=== PATIENT | female | born 1975 | race Caucasian/White ===

== ENCOUNTER 2017-06-21 13:06 | Outpatient (CLI) | payer OTHER ==
--- NOTE | 2017-06-21 17:39 | XRAY Report ---
COMPLETE CERVICAL SPINE: 06/21/2017 CLINICAL INDICATION: Pain. FINDINGS: AP, lateral, oblique, odontoid views of the cervical spine demonstrate reversal of the normal cervical lordosis. Minimal degenerative disk disease is present at C5-6. There is no evidence of fracture. The prevertebral soft tissues are unremarkable. IMPRESSION: REVERSAL OF THE NORMAL CERVICAL LORDOSIS. MINIMAL DEGENERATIVE DISK DISEASE. TD: 06/21/2017 17:39
== END 2017-06-21 13:07 | disposition home or self-care (01) ==
LOC: DI 13:06
PROVIDERS: ATTEND Registered Nurse
DX: M50.322 Other cervical disc degeneration at C5-C6 level (principal)
CPT/HCPCS: 72050

== ENCOUNTER 2017-08-19 07:41 | Outpatient (CLI) | END 2017-08-19 07:42 | disposition home or self-care (01) | CPT/HCPCS: 72156; A9585 ==

== ENCOUNTER 2017-12-05 15:33 | Outpatient (CLI) | payer OTHER ==
--- NOTE | 2017-12-06 14:06 | MRI Report ---
Reason: LUMBAGO WITH SCIATICA,LEFT SIDE,OTHER CHRONIC PAIN Procedure Date: 12/05/2017 Accession Number: [id number] / [id number] Procedure: MRI - Lumbar Spine W/O CPT Code: FULL RESULT: MRI LUMBAR SPINE WITHOUT CONTRAST INDICATION: 42-year-old female. Lumbago with left-sided sciatica. TECHNIQUE: 1. Sagittal STIR, T1 and T2. 2. Axial T1 and T2. COMPARISON: None. FINDINGS: Lumbar spine radiographs are not available for review. Interpretation assumes the presence of 5, [id number], lumbar-type vertebrae. The last fully formed disk has been labeled L5-S1. The L5 vertebra is somewhat transitional. There appears to be partial sacralization on the left. There is a minor, levoconvex lumbar curvature with apex at L2. In the sagittal plane there is a grade 1 anterolisthesis of L3 on L4 measuring 5 mm. No L3 pars interarticularis defect is identified. The anterior subluxation appears to be secondary to degenerative facet arthrosis. There is minor retrolisthesis of L4 on L5 (roughly 2 mm). Alignment is otherwise unremarkable. There is absence of normal T2 signal from the L3-L4 and L4-L5 disks, demonstrating definite degenerative change. There is slight loss of normal T2 signal from the L1-L2 disk suggesting at least early degenerative change. The L2-L3 and L5-S1 disks appear well-hydrated. There is mild to moderate disk space narrowing at L3-L4 and L4-L5. The lumbar disk space heights are otherwise preserved. Type II reactive marrow changes are identified in the vertebral endplates at L3-L4 anteriorly. An intraosseous hemangioma is identified in the inferior T11 vertebral body. The marrow signal intensity is otherwise normal for age. Imaged only in the sagittal plane is a small, posterior disk herniation at T10-T11. It causes mild mass effect on the thecal sac. There is no spinal stenosis. Axial images: T11-T12: Shallow posterior protrusion with minimal mass effect on the thecal sac. No spinal stenosis. The neural foramina appear widely patent. L2-L3: No focal disk herniation. No spinal stenosis or significant foraminal narrowing. L3-L4: Anterolisthesis with associated uncovering of the disk. No focal posterior protrusion or extrusion is demonstrated. There are small intraforaminal protrusions bilaterally. Degenerative facet arthrosis with mild to moderate bony hypertrophy. Moderate redundancy of the ligamenta flava and mild prominence of the intralaminar fat pad. Circumferential thecal sac compression with moderate generalized (central and subarticular zone) spinal stenosis. Mild to moderate foraminal stenoses. L4-L5: Retrolisthesis. Small, central extrusion with caudal migration of extruded disk material in the ventral epidural space, extending inferiorly for about 8 mm, centrally and paracentrally to the left along the posterior margin of the upper L5 vertebral body. Early degenerative facet arthrosis. No significant bony hypertrophy. Mild to moderate redundancy of the ligamenta flava. Mild prominence of the intralaminar fat pad. There is circumferential mass effect on the thecal sac without significant appearing central or subarticular zone spinal stenosis. Mild foraminal stenoses. L5-S1: No disk herniation. No spinal canal or foraminal stenosis. IMPRESSION: 1. Of note, lumbar spine radiographs are not available for review. For the purposes of this dictation, the presence of 5 [id number], lumbar-type vertebrae has been assumed and the last, fully formed disk has been labeled L5-S1. The L5 vertebra appears to be transitional with partial sacralization on the left. 2. Degenerative Disk and facet changes are seen in the mid and lower lumbar spine as documented above. 3. At L3-L4 there is moderate generalized (central and subarticular zone) spinal stenosis due to a combination of factors including a grade I degenerative anterolisthesis of L3 on L4. No neural impingement is identified. 4. At L4-L5 there is a central disk herniation with caudal migration of extruded or sequestered disk material in the ventral epidural space. The extrusion causes mass effect on the thecal sac without significant appearing spinal stenosis. No evidence of neural impingement. Comment: No definite etiology for left-sided sciatica has been identified.
== END 2017-12-05 15:34 | disposition home or self-care (01) ==
LOC: DI 15:33
PROVIDERS: ATTEND Family Medicine
DX: M51.16 Intervertebral disc disorders with radiculopathy, lumbar region (principal); M48.061 Spinal stenosis, lumbar region without neurogenic claudication; G89.29 Other chronic pain
CPT/HCPCS: 72148

== ENCOUNTER 2018-05-18 12:54 | Emergency (ER) | payer OTHER ==
[2018-05-18] MEDS ORDERED: DEXAMETHASONE 10 MG/ML VIAL PO STA (13:43)
[2018-05-18] MEDS ORDERED: KETOROLAC 60 MG/2 ML VIAL IM STA (13:44)
[2018-05-18] MEDS ORDERED: MINERAL OIL ENEMA 133 ML BOTTLE RC STA (13:44)
[2018-05-18 14:12] LABS: BILIRUBIN,URINE NEGATIVE (NEGATIVE); GLUCOSE, URINE (UA) NEGATIVE (NEGATIVE); KETONES,URINE (UA) NEGATIVE (NEGATIVE); LEUKOCYTE ESTERASE, URINE NEGATIVE (NEGATIVE); NITRITE,URINE NEGATIVE (NEGATIVE); OCCULT BLOOD,URINE NEGATIVE (NEGATIVE); PH,URINE 5.5 PH (5.0-7.5); PROTEIN,URINE NEGATIVE (NEGATIVE); UROBILINOGEN,URINE 0.2 (NORMAL) E.U./dL (NORMAL)
[2018-05-18 14:13] LABS: CLARITY,URINE CLEAR (CLEAR)
--- NOTE | 2018-05-18 15:48 | ED Physician Documentation ---
PD HPI BACK PAIN - Stated complaint Stated Complaint: LOW BACK PX RADIATES DOWN LEG-CONSTIPATED - Chief complaint Chief Complaint: Back Pain - History obtained from History obtained from: Patient - History of Present Illness Timing - onset: How many weeks ago (2) Timing - details: Waxing and waning Location: Lower, Right Quality: Similar to prior episodes Associated symptoms: No: Fever, Weakness, Numbness, Incontinent of urine Worsened by: Movement Similar symptoms before: Diagnosis (Lumbar disc herniation diagnosed by MRI one year ago.) - Additional information Additional information: The patient is a 42-year-old female who presents with lower back pain radiating down her right thigh. The pain this time started about 2 weeks ago, and has been waxing and waning since that time. She was seen by her primary physician one week ago and was prescribed prednisone 40 mg daily. She presents now because of persistent symptoms. She also complains of constipation, stating she has not had a bowel movement in the past 5 days. She reports frequency of urination, but denies urinary incontinence. She denies fever, numbness or weakness. The last time she had an episode of back pain this bad was about one year ago. She underwent MRI of her lumbar spine at that time and states that it revealed a herniated disc. Review of Systems Constitutional: denies: Fever Nose: denies: Congestion Throat: denies: Sore throat Cardiac: denies: Chest pain / pressure Respiratory: denies: Dyspnea, Cough GI: reports: Constipation. denies: Abdominal Pain, Nausea, Vomiting : reports: Dysuria, Hesitancy Skin: denies: Rash Musculoskeletal: reports: Back pain. denies: Extremity swelling Neurologic: denies: Focal weakness, Numbness, Headache PD PAST MEDICAL HISTORY - Past Medical History Musculoskeletal: Chronic back pain - Past Surgical History Past Surgical History: Yes HEENT: Tonsil/Adenoidectomy - Present Medications Home Medications: Ambulatory Orders Medication Instructions Recorded Confirmed Cyclobenzaprine [Flexeril] 10 mg PO TID PRN #20 tablet 05/18/18 Erenumab-Aooe [Aimovig 70 mg SQ ONCE 05/18/18 05/18/18 Autoinjector] Lidocaine Patch 5% [Lidoderm Patch] 1 patch TOP DAILY PRN #10 patch 05/18/18 Nortriptyline HCl [Pamelor] 60 mg PO DAILY 05/18/18 05/18/18 Ondansetron [Ondansetron Odt] 4 mg PO QID PRN 05/18/18 05/18/18 Rizatriptan Benzoate [Maxalt] 10 mg PO ONCE PRN 05/18/18 05/18/18 - Allergies Allergies/Adverse Reactions: Allergies Allergy/AdvReac Type Severity Reaction Status Date / Time buspirone AdvReac Rash Verified 05/18/18 13:26 - Social History Does the pt smoke?: No Smoking Status: Never smoker Does the pt drink ETOH?: No Does the pt have substance abuse?: Yes Substance Use and Type: Marijuana - Immunizations Immunizations are current?: Yes PD ED PE NORMAL - Vitals Vital signs reviewed: Yes (borderline hypertension initially) - General General: Alert and oriented X 3, Well developed/nourished, Other (Overweight) - HEENT HEENT: Atraumatic, Pharynx benign - Neck Neck: No bony TTP, No adenopathy - Cardiac Cardiac: RRR - Respiratory Respiratory: No respiratory distress, Clear bilaterally - Abdomen Abdomen: Soft, Non tender - Back Back: No CVA TTP, Other (Tenderness to palpation across the lower back, without tenderness to palpation along the spinous processes.) - Derm Derm: No rash - Extremities Extremities: No edema, No calf tenderness / cord, Other (Straight leg raise is positive on the right at 20 degrees elevation; negative on the left.) - Neuro Neuro: Alert and oriented X 3, No motor deficit, No sensory deficit, Other (Deep tendon reflexes are 2+ and equal bilaterally at the patellar and Achilles tendons.) Results - Vitals Vitals: Oxygen O2 Source Room air - Labs Labs: Laboratory Tests 05/18/18 14:08 Urine Color YELLOW Urine Clarity CLEAR Urine pH 5.5 Ur Specific [place] <=1.005 Urine Protein NEGATIVE Urine Glucose (UA) NEGATIVE Urine Ketones NEGATIVE Urine Occult Blood NEGATIVE Urine Nitrite NEGATIVE Urine Bilirubin NEGATIVE Urine Urobilinogen 0.2 (NORMAL) Ur Leukocyte Esterase NEGATIVE Ur Microscopic Review NOT INDICATED Urine Culture Comments NOT INDICATED PD MEDICAL DECISION MAKING - ED course Complexity details: reviewed old records, reviewed results, re-evaluated patient, considered differential, d/w patient, d/w family ED course: The patient's presentation is significant for acute exacerbation of recurrent low back pain. Her presentation does not suggest epidural abscess, cauda equina syndrome, or spinal stenosis. Urinalysis is negative. She has had no bowel movement for the past 5 days, and is concerned about constipation. Treatment in the emergency department included administration of dexamethasone 10 mg orally and ketorolac 60 mg IM. This markedly improved her back pain. A fleets mineral oil enema was administered, without significant results. She is being discharged with a bottle of milk of magnesia to use at home. 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 Departure - Departure Disposition: Home, Self Care Clinical Impression: Low back pain Qualifiers: Chronicity: unspecified Back pain laterality: bilateral Sciatica presence: with sciatica Sciatica laterality: sciatica of right side Qualified Code(s): M54.41 - Lumbago with sciatica, right side Constipation Qualifiers: Constipation type: unspecified constipation type Qualified Code(s): K59.00 - Constipation, unspecified Condition: Stable Instructions: ED Low Back Pain Injury, ED Constipation Follow-Up: Josie Abraham ARNP [Primary Care Provider] - Prescriptions: Cyclobenzaprine [Flexeril] 10 mg PO TID PRN #20 tablet PRN Reason: Spasms Lidocaine Patch 5% [Lidoderm Patch] 1 patch TOP DAILY PRN #10 patch PRN Reason: pain Comments: Apply ice pack to your lower back intermittently for the next few days. You can use ibuprofen, up to 800 mg 3 times daily. He can use Flexeril as prescribed as needed for muscle spasms. You can use lidocaine patch as prescribed as needed for pain. Drink milk of magnesia to help with constipation. Follow-up with your primary physician within 1 week. Call to schedule an appointment. Return to the emergency department if you develop increasing pain, persistent vomiting, or otherwise worsening symptoms. Discharge Date/Time: 05/18/18 16:10
[2018-05-18] MEDS ORDERED: MAGNESIUM CITRATE 296 ML BOTTLE PO STA (15:55)
[2018-05-18 16:06] VITALS: BP 139/100
== END 2018-05-18 16:10 | disposition home or self-care (01) ==
LOC: ED 12:54
DX: M54.41 Lumbago with sciatica, right side (principal); K59.00 Constipation, unspecified
CPT/HCPCS: 81003; 96372; 99283; A9270; 81001; 87086

== ENCOUNTER 2021-03-24 09:24 | Outpatient (CLI) | payer OTHER ==
--- NOTE | 2021-03-24 17:18 | XRAY Report ---
PROCEDURE: Knee 3 View BILAT INDICATIONS: BILATERAL KNEE PAIN TECHNIQUE: 3 views of each knee were acquired. COMPARISON: None. FINDINGS: Bones: No fractures or dislocations. There is minimal joint space narrowing in the medial compartmen t of the knees bilaterally. No suspicious bony lesions. Soft tissues: No joint effusions. No suspicious soft tissue calcifications. IMPRESSION: 1. Minimal joint space narrowing in the medial compartments bilaterally. Reviewed by: Luca Laura MD on 03/24/2021 5:17 PM PST Approved by: Luca Laura MD on 03/24/2021 5:17 PM [facility] Station ID: [id number]
== END 2021-03-24 09:25 | disposition home or self-care (01) ==
LOC: DI.S 09:24
PROVIDERS: ATTEND Registered Nurse
DX: M17.0 Bilateral primary osteoarthritis of knee (principal)

== ENCOUNTER 2021-04-21 13:54 | Outpatient (CLI) | payer OTHER ==
[2021-04-21 14:08] LABS: BASOPHILS # (AUTO) 0.1 10^3/uL (0.0-0.1); BASOPHILS % (AUTO) 0.9 %; EOSINOPHILS # (AUTO) 0.1 10^3/uL (0.0-0.7); EOSINOPHILS % (AUTO) 1.1 %; HCT - HEMATOCRIT 42.3 % (37.0-47.0); HGB - HEMOGLOBIN 14.6 g/dL (12.0-16.0); LYMPHOCYTES # (AUTO) 1.6 10^3/uL (1.5-3.5); LYMPHOCYTES % (AUTO) 24.3 %; MEAN CORPUSCULAR HEMOGLOBIN 30.5 pg (27.0-31.0); MEAN CORPUSCULAR HGB CONC 34.5 g/dL (32.0-36.0); MEAN CORPUSCULAR VOLUME 88.5 fL (81.0-99.0); MEAN PLATELET VOLUME 8.9 fL (7.9-10.8); MONOCYTES # (AUTO) 0.5 10^3/uL (0.0-1.0); NEUTROPHILS # (AUTO) 4.3 10^3/uL (1.5-6.6); NEUTROPHILS % (AUTO) 65.4 %; PLT - PLATELET COUNT 281 10^3/uL (130-450); RED BLOOD COUNT 4.78 10^6/uL (4.20-5.40); RED CELL DISTRIBUTION WIDTH 12.5 % (12.0-15.0); WHITE BLOOD COUNT 6.5 x10^3/uL (4.8-10.8)
== END 2021-04-21 13:55 | disposition home or self-care (01) ==
LOC: LAB 13:54
PROVIDERS: ATTEND Physician Assistant
DX: R19.7 Diarrhea, unspecified (principal)
CPT/HCPCS: 36415; 81599; 85025; 86140

== ENCOUNTER 2021-05-09 12:29 | Outpatient (CLI) | payer OTHER | END 2021-05-09 12:30 | disposition home or self-care (01) | LOC: LAB 12:29 | PROVIDERS: ATTEND Physician Assistant | DX: R19.7 Diarrhea, unspecified (principal) | CPT/HCPCS: 81599; 83631; 83993; 87045; 87427; 87449; 87493 ==

== ENCOUNTER 2023-03-19 15:03 | Outpatient (CLI) | payer OTHER ==
--- NOTE | 2023-03-20 11:01 | Mammography Report ---
BILATERAL DIGITAL SCREENING MAMMOGRAM 3D/2D: 03/19/2023 CLINICAL: Baseline exam. Routine screening. No prior exams were available for comparison. Both breasts are almost entirely fatty (category a/<25% glandular tissue). No significant masses, calcifications, or other findings are seen in either breast. IMPRESSION: NEGATIVE There is no mammographic evidence of malignancy. A 1 year screening mammogram is recommended. Based on the Tyrer Cuzick model (a risk assessment model) the patient's lifetime risk is 6.9% and her 10 year risk is 1.5%. According to the ACR, ACS, and NCCN guidelines, an annual breast MRI exam hal g with mammogram is recommended if the patients lifetime risk is 20% or greater. This exam was interpreted at Station ID: [id number]. NOTE: For mammograms, a report in lay terms will be sent to the patient. Approximately 15% of breast malignancies will not be visualized mammographically. In the management of a palpable breast mass, a negative mammogram must not discourage biopsy of a clinically suspicious lesion. Electronically Signed By: Catherine [email or web address]:03/20/2023 08:15:09 letter sent: No_Letter ACR BI-RADS Category 1: Negative 3341F PARENCHYMAL PATTERN: (F) - The breast(s) demonstrate(s) diffuse fatty replacement. BI-RADS CATEGORY: (1) - 1 Mammogram [id number] 1 year screening LATERALITY: (B)
== END 2023-03-19 15:04 | disposition home or self-care (01) ==
LOC: DI.S 15:03
PROVIDERS: ATTEND Registered Nurse
DX: Z12.31 Encounter for screening mammogram for malignant neoplasm of breast (principal)